=== PATIENT | female | born 1960 | race Caucasian/White ===

== ENCOUNTER 2021-07-31 12:50 | Inpatient (IN) ==
[2021-07-31] MEDS ORDERED: Nitroglycerin 0.4 MG TAB.SUBL SL PRN (14:52)
[2021-07-31] MEDS ORDERED: Perflutren Lipid Microsphere 1.3 ML in 0.9 % Sodium Chloride 8.7 ML IVP PRN (14:52)
[2021-07-31] MEDS ORDERED: *HR* Heparin 5,000 UNIT/ML VIAL IVP PRN (15:15)
[2021-07-31] MEDS: Ipratropium/Albuterol Neb 3 ML IH SCH ×3 (15:43→23:52)
[2021-07-31] MEDS: Nicotine 21 MG PATCH.TD24 TD SCH (15:53)
[2021-07-31] MEDS: Metoprolol XL (24 HR) Succ 25 MG TAB.ER.24H PO SCH (15:53)
[2021-07-31] MEDS: Azithromycin 500 MG in 0.9 % Sodium Chloride 250 ML IVPB SCH (15:55)
[2021-07-31] MEDS: Heparin 25,000UNIT/250ML 1/2NS 25,000 UNIT/250 ML IV.SOLN IVC SCH (15:56)
[2021-07-31 16:05] LABS: Hematocrit 42.2 % (35.3-44.9); Mean Corpuscular HGB Conc 33.2 g/dL (31.6-35.5); Mean Corpuscular Hemoglobin 29.9 pg (28.0-33.3); Mean Corpuscular Volume 90.2 fL (83.0-100.0); Mean Platelet Volume 8.9 fL (9.4-12.4); Platelet Count 246 K/mcL (140-400); Red Blood Count 4.68 M/mcL (3.82-4.97); Red Cell Distribution Width 13.6 % (11.5-14.5); White Blood Count 11.2 K/mcL (4.3-11.1)
[2021-07-31 16:15] LABS: INR 1.1; Prothrombin Time 12.6 Seconds (9.4-12.1)
[2021-07-31] MEDS: methylPREDNISolone 125 MG/2 ML VIAL IVP SCH (19:35)
[2021-07-31] MEDS: Gabapentin 300 MG CAPSULE PO SCH (19:35)
[2021-07-31] MEDS: Budesonide/Formoterol 160/4.5 1 PUFF INH IH SCH (20:40)
[2021-07-31] MEDS: BUPRENORPHINE HCL SL SCH (21:03)
[2021-07-31] MEDS: NALOXONE HCL SL SCH (21:03)
[2021-07-31] MEDS: *HR* Heparin 5,000 UNIT/ML VIAL IVP PRN (21:59)
[2021-08-01] MEDS: methylPREDNISolone 125 MG/2 ML VIAL IVP SCH ×4 (00:01→17:00)
[2021-08-01] MEDS: Ipratropium/Albuterol Neb 3 ML IH SCH ×6 (03:49→23:08)
[2021-08-01 04:37] LABS: Basophils % 0.2 %; Hematocrit 45.2 % (35.3-44.9); Hemoglobin 14.9 g/dL (11.5-15.4); Immature Granulocytes % 0.6 % (0-4); Lymphocytes # 2.1 K/mcL (0.6-4.6); Lymphocytes % 20.6 %; Mean Corpuscular Hemoglobin 30.1 pg (28.0-33.3); Mean Corpuscular Volume 91.3 fL (83.0-100.0); Mean Platelet Volume 8.9 fL (9.4-12.4); Monocytes # 0.4 K/mcL (0.0-1.3); Monocytes % 3.6 %; Neutrophils # 7.6 K/mcL (1.6-8.9); Platelet Count 287 K/mcL (140-400); Red Blood Count 4.95 M/mcL (3.82-4.97); Red Cell Distribution Width 13.6 % (11.5-14.5); White Blood Count 10.1 K/mcL (4.3-11.1)
[2021-08-01 04:46] LABS: Estimated Average Glucose 134 mg/dl; Hemoglobin A1C 6.3 %
[2021-08-01 04:55] LABS: Chol/HDL Ratio 3.6 (0-4.9)
[2021-08-01 05:04] LABS: Alanine Aminotransferase 12 Units/L (7-52); Albumin 3.7 g/dL (3.5-5.7); Albumin/Globulin Ratio 1.4 (1.1-2.2); Alkaline Phosphatase 44 Units/L (34-104); Aspartate Amino Transferase 24 Units/L (13-39); BUN/Creatinine Ratio 26 (6-26); Bilirubin,Total 0.3 mg/dL (0.3-1.0); Blood Urea Nitrogen 14 mg/dL (8-23); Calcium 8.7 mg/dL (8.6-10.3); Carbon Dioxide 22 mEq/L (23-29); Chloride 104 mEq/L (98-107); Globulin 2.7 g/dL (2.4-3.5); Glucose 141 mg/dL (70-105); Magnesium 1.9 mg/dL (1.6-2.6); Osmolality,Calculated 287 (280-300); Sodium 137 mEq/L (136-145); Total Protein 6.4 g/dL (6.4-8.9); Troponin I 0.67 ng/mL (< 0.04); eGFR For African Americans > 60 (> 60); eGFR For Non-African Americans > 60 (> 60)
[2021-08-01] MEDS: Budesonide/Formoterol 160/4.5 1 PUFF INH IH SCH ×2 (07:41→19:44)
[2021-08-01] MEDS: Metoprolol XL (24 HR) Succ 25 MG TAB.ER.24H PO SCH (09:16)
[2021-08-01] MEDS: Aspirin 81 MG TAB.CHEW PO SCH (09:16)
[2021-08-01] MEDS: Nicotine 21 MG PATCH.TD24 TD SCH (09:16)
[2021-08-01] MEDS: Gabapentin 300 MG CAPSULE PO SCH ×3 (09:16→20:49)
[2021-08-01] MEDS: BuPROPion XL (24 HR) 150 MG TABLET PO SCH (09:17)
[2021-08-01] MEDS: NALOXONE HCL SL SCH (09:32)
[2021-08-01] MEDS: BUPRENORPHINE HCL SL SCH (09:32)
[2021-08-01] MEDS: *HR* Heparin 5,000 UNIT/ML VIAL IVP PRN (12:27)
[2021-08-01] MEDS: lisinopriL 5 MG TABLET PO SCH (12:27)
[2021-08-01] MEDS: Azithromycin 500 MG in 0.9 % Sodium Chloride 250 ML IVPB SCH (16:57)
[2021-08-01] MEDS: Heparin 25,000UNIT/250ML 1/2NS 25,000 UNIT/250 ML IV.SOLN IVC SCH (20:49)
[2021-08-01] MEDS ORDERED: Melatonin 3 MG TABLET PO PRN (21:03)
[2021-08-02 01:48] LABS: Basophils % 0.1 %; Hematocrit 41.4 % (35.3-44.9); Hemoglobin 13.7 g/dL (11.5-15.4); Immature Granulocytes % 0.4 % (0-4); Lymphocytes # 3.3 K/mcL (0.6-4.6); Lymphocytes % 20.8 %; Mean Corpuscular HGB Conc 33.1 g/dL (31.6-35.5); Mean Corpuscular Hemoglobin 30.1 pg (28.0-33.3); Mean Platelet Volume 9.1 fL (9.4-12.4); Monocytes # 1.8 K/mcL (0.0-1.3); Monocytes % 11.1 %; Neutrophils # 10.8 K/mcL (1.6-8.9); Platelet Count 282 K/mcL (140-400); Red Blood Count 4.55 M/mcL (3.82-4.97); Red Cell Distribution Width 13.4 % (11.5-14.5); Segmented Neutrophils % 67.6 %
[2021-08-02 02:08] LABS: BUN/Creatinine Ratio 29 (6-26); Blood Urea Nitrogen 17 mg/dL (8-23); Calcium 8.6 mg/dL (8.6-10.3); Carbon Dioxide 23 mEq/L (23-29); Chloride 105 mEq/L (98-107); Glucose 108 mg/dL (70-105); Osmolality,Calculated 286 (280-300); Potassium 3.9 mEq/L (3.5-5.1); Sodium 137 mEq/L (136-145); eGFR For African Americans > 60 (> 60); eGFR For Non-African Americans > 60 (> 60)
[2021-08-02] MEDS: methylPREDNISolone 125 MG/2 ML VIAL IVP SCH ×5 (02:24→23:43)
[2021-08-02] MEDS: Ipratropium/Albuterol Neb 3 ML IH SCH ×6 (03:27→23:28)
[2021-08-02] MEDS: Budesonide/Formoterol 160/4.5 1 PUFF INH IH SCH ×2 (07:25→20:12)
[2021-08-02] MEDS: Gabapentin 300 MG CAPSULE PO SCH ×3 (08:15→20:02)
[2021-08-02] MEDS: Nicotine 21 MG PATCH.TD24 TD SCH ×2 (08:15→08:32)
[2021-08-02] MEDS: lisinopriL 5 MG TABLET PO SCH (08:15)
[2021-08-02] MEDS: BuPROPion XL (24 HR) 150 MG TABLET PO SCH (08:15)
[2021-08-02] MEDS: Metoprolol XL (24 HR) Succ 25 MG TAB.ER.24H PO SCH (08:15)
[2021-08-02] MEDS: Aspirin 81 MG TAB.CHEW PO SCH (08:30)
[2021-08-02] MEDS: BUPRENORPHINE HCL SL SCH (08:32)
[2021-08-02] MEDS: NALOXONE HCL SL SCH (08:32)
[2021-08-02] MEDS ORDERED: *HR* Heparin 10,000 UNIT/10 ML VIAL ONE (10:30)
[2021-08-02] MEDS ORDERED: ISOVUE-370 200 ML INFUS..BTL ONE (10:30)
[2021-08-02] MEDS ORDERED: *HR* FentaNYL (PF) 100 MCG/2 ML VIAL ONE (10:30)
[2021-08-02] MEDS ORDERED: *HR* Midazolam HCl 2 MG/2 ML VIAL ONE (10:30)
[2021-08-02] MEDS ORDERED: Nitroglycerin 1,000 MCG/5 ML VIAL IV ONE ×2 (10:30→10:33)
[2021-08-02] MEDS ORDERED: 0.9 % Sodium Chloride 1,000 ML ONE (10:30)
[2021-08-02] MEDS ORDERED: Heparin 1,000 UNITS/500 mL 500 ML ONE (10:30)
[2021-08-02] MEDS: Azithromycin 500 MG in 0.9 % Sodium Chloride 250 ML IVPB SCH (16:54)
[2021-08-03] MEDS: Ipratropium/Albuterol Neb 3 ML IH SCH ×3 (04:03→11:34)
[2021-08-03] MEDS: methylPREDNISolone 125 MG/2 ML VIAL IVP SCH (05:04)
[2021-08-03] MEDS: Budesonide/Formoterol 160/4.5 1 PUFF INH IH SCH (07:35)
[2021-08-03] MEDS: Nicotine 21 MG PATCH.TD24 TD SCH (08:30)
[2021-08-03] MEDS: Gabapentin 300 MG CAPSULE PO SCH (08:30)
[2021-08-03] MEDS: BuPROPion XL (24 HR) 150 MG TABLET PO SCH (08:30)
[2021-08-03] MEDS: Aspirin 81 MG TAB.CHEW PO SCH (08:30)
[2021-08-03] MEDS: Metoprolol XL (24 HR) Succ 25 MG TAB.ER.24H PO SCH (08:31)
[2021-08-03] MEDS: lisinopriL 5 MG TABLET PO SCH (08:31)
[2021-08-03] MEDS: NALOXONE HCL SL SCH (10:59)
[2021-08-03] MEDS: BUPRENORPHINE HCL SL SCH (10:59)
[2021-08-03 11:09] VITALS: BP 138/86; PULSE 83; TEMP 97.7; O2SAT 99
== END 2021-08-03 13:01 | disposition home or self-care (01) | DRG 190 ==
LOC: 3NENU → SUATTDRO 16:30
PROVIDERS: ADMIT Hospitalist; ATTEND Hospitalist